=== PATIENT | male | born 1960 | race Hispanic/Latino ===

== ENCOUNTER 2020-02-08 11:50 | Emergency (ER) | payer OTHER ==
[2020-02-08] MEDS ORDERED: CEFTRIAXONE SODIUM 2 GM VIAL ONE (12:26)
[2020-02-08] MEDS ORDERED: ACETAMINOPHEN EXTRA STRENGTH 500 MG TABLET ONE (12:26)
[2020-02-08 12:49] LABS: BASOPHILS % (AUTO) 0.4 % (0.0-5.0); EOSINOPHILS % (AUTO) 1.2 % (0.0-8.0); HEMATOCRIT 36.5 % (42-54); LYMPHOCYTES % (AUTO) 25.5 % (21.0-51.0); MEAN CORPUSCULAR HEMOGLOBIN 33.9 pg (27.0-33.0); MEAN CORPUSCULAR HGB CONC 35.6 g/dL (32.0-36.0); MEAN CORPUSCULAR VOLUME 95.3 fL (79-99); MONOCYTES % (AUTO) 8.5 % (3.0-13.0); NEUTROPHILS % (AUTO) 64.2 % (40.0-77.0); PLATELET COUNT (AUTO) 99 K/uL (130-400); RED BLOOD CELL COUNT(AUTO) 3.83 MIL/uL (4.50-6.20); WHITE BLOOD COUNT (AUTO) 5.1 K/uL (4.8-10.8)
[2020-02-08 13:02] LABS: CREATININE 0.9 mg/dL (0.5-1.5)
[2020-02-08 13:07] LABS: ALBUMIN 2.9 g/dL (3.5-5.0); BILIRUBIN,TOTAL 0.8 mg/dL (0.2-1.0); TOTAL PROTEIN, SERUM 7.4 g/dL (6.0-8.3)
== END 2020-02-08 14:26 | disposition home or self-care (01) ==
LOC: EDH 11:50
DX: L03.116 Cellulitis of left lower limb (principal); E11.9 Type 2 diabetes mellitus without complications; I10 Essential (primary) hypertension; Z72.0 Tobacco use
CPT/HCPCS: 36415; 80053; 83605; 85025; 96361; 96374; 99283; J0696

== ENCOUNTER 2020-02-10 18:32 | Inpatient (IN) | payer OTHER ==
[~2020-02-10] VITALS: Ht 185.4 cm; Wt 81.1 kg
[2020-02-10 19:45] LABS: BASOPHILS % (AUTO) 0.6 % (0.0-5.0); EOSINOPHILS % (AUTO) 2.5 % (0.0-8.0); HEMATOCRIT 37.8 % (42-54); LYMPHOCYTES % (AUTO) 29.9 % (21.0-51.0); MEAN CORPUSCULAR HGB CONC 34.7 g/dL (32.0-36.0); MEAN CORPUSCULAR VOLUME 95.2 fL (79-99); MONOCYTES % (AUTO) 9.3 % (3.0-13.0); NEUTROPHILS % (AUTO) 57.5 % (40.0-77.0); PLATELET COUNT (AUTO) 126 K/uL (130-400); RED BLOOD CELL COUNT(AUTO) 3.97 MIL/uL (4.50-6.20); WHITE BLOOD COUNT (AUTO) 5.2 K/uL (4.8-10.8)
[2020-02-10] MEDS ORDERED: VANCOMYCIN 1GM+NS 250ML 500 ML IV ONE (19:59)
[2020-02-10] MEDS ORDERED: ZOSYN 3.375GM+NS 50ML 50 ML IV ONE (19:59)
[2020-02-10 20:02] LABS: INR 0.91 (0.85-1.15); PARTIAL THROMBOPLASTIN TIME 25.9 SEC (26.3-35.5); PROTHROMBIN TIME 9.9 SEC (9.6-11.6)
[2020-02-10 20:10] LABS: CARBON DIOXIDE 26 mmol/L (21-32); CHLORIDE 100 mmol/L (101-111); GLOMERULAR FILTR. RATE CALC 81 mL/min (>60); GLUCOSE,RANDOM 304 mg/dL (70-105); POTASSIUM 4.4 mmol/L (3.5-5.1); SODIUM SERUM 135 mmol/L (136-145); UREA NITROGEN, BLOOD 20 mg/dL (7-18)
[2020-02-10 20:24] LABS: APPEARANCE,URINE Clear (CLEAR); BILIRUBIN,URINE Negative (NEGATIVE); COLOR,URINE Yellow (YELLOW); GLUCOSE, URINE (UA) >=1000 mg/dL (NEGATIVE); KETONES,URINE Trace mg/dL (NEGATIVE); LEUKOCYTE ESTERASE ,URINE Negative (NEGATIVE); NITRATE,URINE Negative (NEGATIVE); OCCULT BLOOD,URINE Negative (NEGATIVE); PH,URINE 5.5 (5.0-8.0); PROTEIN,URINE Negative (NEGATIVE); UROBILINOGEN,URINE 0.2 mg/dL (0.2-1.0)
[2020-02-10 20:30] LABS: BACTERIA,URINE Rare /HPF (None Seen); MUCUS,URINE Rare LPF (None Seen); RBC,URINE 0-1 /HPF (0-1); SQUAMOUS EPITHELIAL CELL,UR Rare /HPF (0-2); WBC,URINE 0-1 /HPF (0-1)
[2020-02-10 20:38] LABS: ALANINE AMINOTRANSFERASE 40 U/L (12-78); ASPARTATE AMINOTRANSFERASE 36 U/L (10-37); BILIRUBIN,TOTAL 0.5 mg/dL (0.2-1.0); CREATINE KINASE, TOTAL 79 U/L (21-232); MYOGLOBIN 36 ng/mL (10-92); TOTAL PROTEIN, SERUM 7.6 g/dL (6.0-8.3); TROPONIN I < 0.04 ng/mL (0.00-0.06)
[2020-02-10] MEDS ORDERED: VANCOMYCIN PROTOCOL PER PHARMACY IV SCH (21:00)
[2020-02-10] MEDS ORDERED: COMPOUND IV REFRIGERATED 1 EACH IVSOLN MISC PRN (21:00)
[2020-02-10] MEDS ORDERED: ONDANSETRON HCL 4 MG/2 ML VIAL IVP PRN (21:00)
[2020-02-10] MEDS ORDERED: ACETAMINOPHEN 325 MG TAB PO PRN ×2 (21:00→21:15)
[2020-02-10] MEDS: INSULIN R PO SS1 SQ SCH (21:00)
[2020-02-10] MEDS ORDERED: HYDROMORPHONE HCL 0.5 MG/0.5 ML ML IVP PRN (21:00)
[2020-02-10] MEDS ORDERED: ENOXAPARIN SODIUM 40 MG/0.4 ML SYRINGE SQ ONE (22:38)
[2020-02-10] MEDS ORDERED: 1/2 NORMAL SALINE 1,000 ML IV ONE (22:39)
[2020-02-10] MEDS ORDERED: INSULIN HUMULIN R 100 UNIT/ML 3ML ONE (22:40)
[2020-02-11] VITALS (14 sets, daily range): BP systolic 94–134; BP diastolic 50–82
[2020-02-11] MEDS ORDERED: ZOSYN 3.375GM+NS 50ML 50 ML IV ONE ×2 (04:19→13:37)
[2020-02-11] MEDS: 1/2 NORMAL SALINE 1,000 ML IV SCH ×4 (05:00→22:59)
[2020-02-11] MEDS: ZOSYN 3.375GM+NS 50ML 50 ML IV SCH ×3 (05:00→21:42)
[2020-02-11 06:33] LABS: BASOPHILS % (AUTO) 0.5 % (0.0-5.0); EOSINOPHILS % (AUTO) 1.6 % (0.0-8.0); HEMATOCRIT 36.7 % (42-54); LYMPHOCYTES % (AUTO) 30.7 % (21.0-51.0); MEAN CORPUSCULAR HEMOGLOBIN 33.8 pg (27.0-33.0); MEAN CORPUSCULAR HGB CONC 35.4 g/dL (32.0-36.0); MEAN CORPUSCULAR VOLUME 95.3 fL (79-99); MONOCYTES % (AUTO) 8.3 % (3.0-13.0); NEUTROPHILS % (AUTO) 58.7 % (40.0-77.0); PLATELET COUNT (AUTO) 114 K/uL (130-400); RED BLOOD CELL COUNT(AUTO) 3.85 MIL/uL (4.50-6.20); RED CELL DISTRIBUTION WIDTH 12.1 % (11.0-15.5); WHITE BLOOD COUNT (AUTO) 5.5 K/uL (4.8-10.8)
[2020-02-11 06:52] LABS: ALBUMIN 2.9 g/dL (3.5-5.0); CREATININE 0.7 mg/dL (0.5-1.5); POTASSIUM 3.9 mmol/L (3.5-5.1); TOTAL PROTEIN, SERUM 7.5 g/dL (6.0-8.3)
[2020-02-11] MEDS: INSULIN R PO SS1 SQ SCH ×4 (07:30→21:00)
[2020-02-11] MEDS ORDERED: ENOXAPARIN SODIUM 40 MG/0.4 ML SYRINGE SQ ONE (08:04)
[2020-02-11] MEDS ORDERED: VANCOMYCIN 1GM+NS 250ML 250 ML IV ONE (08:05)
[2020-02-11] MEDS: VANCOMYCIN 1.5 GM in SODIUM CHLORIDE 0.9% 250 ML IV SCH ×2 (09:00→22:59)
[2020-02-11] MEDS: ENOXAPARIN SODIUM 40 MG/0.4 ML SYRINGE SQ SCH (09:00)
[2020-02-11] MEDS ORDERED: MIDAZOLAM HCL 1 MG/ML 2ML VIAL ONE ×2 (18:30→19:14)
[2020-02-11] MEDS ORDERED: FENTANYL CITRATE PF 50 MCG/1 ML 2ML VIAL ONE ×6 (18:31→20:03)
[2020-02-11] MEDS ORDERED: BUPIVACAINE/PF 0.5% 10ML VIAL ONE (18:34)
[2020-02-11] MEDS ORDERED: LIDOCAINE HCL 2% 20ML ONE (18:34)
--- NOTE | 2020-02-11 23:00 | NUR ---
patient alert and oriented at the bedside. spoke with daughter bridger and xin to update home medications. patient also takes humalog 2 units if blood sugar greater than 250, soliqa, and trimethromim/sulfa 150 mg bid.
[2020-02-11] MEDS ORDERED: LISI10TA7 PO (23:29)
[2020-02-11] MEDS ORDERED: PRAV20TA4 PO (23:29)
[2020-02-11] MEDS ORDERED: CEFA500C3 PO (23:29)
[2020-02-11] MEDS ORDERED: METF-444 PO (23:29)
[2020-02-11] MEDS ORDERED: MUPI22OI2 TP (23:29)
[2020-02-12] VITALS (10 sets, daily range): BP systolic 100–130; BP diastolic 64–84
[2020-02-12] MEDS: MORPHINE SULFATE 2 MG/ML 1ML SYG IVP PRN ×2 (03:10→10:21)
[2020-02-12] MEDS: ZOSYN 3.375GM+NS 50ML 50 ML IV SCH ×3 (03:10→21:15)
[2020-02-12 04:43] LABS: HEMATOCRIT 34.9 % (42-54); MEAN CORPUSCULAR HGB CONC 34.4 g/dL (32.0-36.0); MEAN CORPUSCULAR VOLUME 95.9 fL (79-99); RED BLOOD CELL COUNT(AUTO) 3.64 MIL/uL (4.50-6.20); RED CELL DISTRIBUTION WIDTH 11.9 % (11.0-15.5); WHITE BLOOD COUNT (AUTO) 4.5 K/uL (4.8-10.8)
[2020-02-12] MEDS: HYDROMORPHONE HCL 0.5 MG/0.5 ML ML IVP PRN ×3 (04:57→22:22)
[2020-02-12] MEDS: 1/2 NORMAL SALINE 1,000 ML IV SCH ×3 (05:00→16:43)
[2020-02-12 05:12] LABS: ALBUMIN 2.5 g/dL (3.5-5.0); BILIRUBIN,TOTAL 0.8 mg/dL (0.2-1.0); CREATININE 0.7 mg/dL (0.5-1.5); TOTAL PROTEIN, SERUM 6.9 g/dL (6.0-8.3)
[2020-02-12] MEDS: INSULIN R PO SS1 SQ SCH ×4 (06:12→21:00)
[2020-02-12] MEDS: ENOXAPARIN SODIUM 40 MG/0.4 ML SYRINGE SQ SCH (10:18)
[2020-02-12] MEDS: VANCOMYCIN 1.5 GM in SODIUM CHLORIDE 0.9% 250 ML IV SCH ×2 (10:19→21:15)
--- NOTE | 2020-02-12 17:23 | NUR ---
DCP CM spoke to pt discussed dc plans. Pt is independent prior to admission, lives at home with spouse, daughter lives close by. Denies any equipments/services. Feels safe to go back home, still drives, spouse and daughter able to assist with transportation and needs as necessary. DC plan to home once stable. CM to cont to follow up. Addendum: 02/12/20 at 1724 by ILYA CASILLAS LVN CM Amended: Links added.
--- NOTE | 2020-02-12 18:20 | NUR ---
DR CLIFFORD changed dressing left foot states looks better today will wait to see what the culture grows
[2020-02-12] MEDS: TETANUS/DIPHTHERIA TOXOID [ADULT] 0.5 ML VIAL IM SCH ×2 (21:00→23:48)
--- NOTE | 2020-02-12 21:15 | NUR ---
MEDS SHIFT ASSESSMENT DONE, PLEASE REFER TO CHART. DUE MEDS ADMINISTERED, TOLERATED WELL. KEPT RESTED AND COMFORTABLE. CALL LIGHT WITHIN REACH. WILL MONITOR PT. Addendum: 02/13/20 at 0449 by ARABELLA BARRERA RN RN Amended: Links added.
--- NOTE | 2020-02-12 22:22 | NUR ---
PAIN PT CALLS FOR PAIN MEDICATION FOR LEFT FOOT POST OP PAINS. MEDICATED WITH MORPHINE IV. KEPT RESTED AND COMFORTABLE IN BED. ELEVATED LLE IN BED. WILL RE-ASSESS PT.
--- NOTE | 2020-02-13 02:00 | NUR ---
ROUNDS PT RESTING WELL, FAIRLY ASLEEP. NO DISTRESS NOTED. KEPT UNDISTURBED FOR NOW. WILL MONITOR PT.
[2020-02-13] MEDS: 1/2 NORMAL SALINE 1,000 ML IV SCH ×3 (02:27→21:00)
[2020-02-13 03:40] LABS: HEMATOCRIT 35.7 % (42-54); MEAN CORPUSCULAR HEMOGLOBIN 33.2 pg (27.0-33.0); MEAN CORPUSCULAR HGB CONC 34.7 g/dL (32.0-36.0); MEAN CORPUSCULAR VOLUME 95.5 fL (79-99); PLATELET COUNT (AUTO) 116 K/uL (130-400); RED BLOOD CELL COUNT(AUTO) 3.74 MIL/uL (4.50-6.20); RED CELL DISTRIBUTION WIDTH 11.9 % (11.0-15.5); WHITE BLOOD COUNT (AUTO) 4.7 K/uL (4.8-10.8)
[2020-02-13 03:45] VITALS: BP 131/72
[2020-02-13 03:52] LABS: CREATININE 0.7 mg/dL (0.5-1.5); POTASSIUM 3.6 mmol/L (3.5-5.1)
[2020-02-13] MEDS: ZOSYN 3.375GM+NS 50ML 50 ML IV SCH ×3 (04:18→20:48)
[2020-02-13 04:47] LABS: BAND NEUTROPHILS % (MANUAL) 1 % (0-2); EOSINOPHILS % (MANUAL) 1 % (1-6); LYMPHOCYTES % (MANUAL) 34 % (22-44); MONOCYTES % (MANUAL) 9 % (2-9); REACTIVE LYMPHOCYTES 3 % (0-0); SEGMENTED NEUTROPHILS % 52 % (40-70)
[2020-02-13 04:48] LABS: MAN.DIFF COMMENT-IMPRESSION MANUAL DIFFERENTIAL; PLATELET MORPHOLOGY COMMENT SLIGHTLY DECREASED
[2020-02-13] MEDS: HYDROMORPHONE HCL 0.5 MG/0.5 ML ML IVP PRN ×2 (05:35→17:43)
--- NOTE | 2020-02-13 05:35 | NUR ---
PAIN PT CALLS FOR PAIN MEDICATION. CLAIMS OF LEFT FOOT PAINS. MEDICATED WITH DILAUDID IV. KEPT COMFORTABLE AND RESTED. WILL RE-ASSESS PT.
[2020-02-13] MEDS: INSULIN R PO SS1 SQ SCH ×4 (06:04→20:48)
--- NOTE | 2020-02-13 06:53 | NUR ---
MD DR CLIFFORD IN TO SEE PT. DRESSING CHANGE DONE BY . NO ORDERS GIVEN.
--- NOTE | 2020-02-13 08:01 | NUR ---
PHYSICIAN ROUND DR HAQUE NEW ORDERS FOR AM LAB BMP AND CBC, ORDERS PLACED
[2020-02-13 08:57] VITALS: BP 133/79
[2020-02-13] MEDS: ENOXAPARIN SODIUM 40 MG/0.4 ML SYRINGE SQ SCH (09:00)
[2020-02-13 12:08] VITALS: BP 131/77
[2020-02-13] MEDS: VANCOMYCIN 1.25 GM in SODIUM CHLORIDE 0.9% 250 ML IV SCH ×2 (14:00→22:20)
[2020-02-13 16:46] VITALS: BP 131/77
[2020-02-13 20:00] VITALS: BP 114/59
[2020-02-13 23:40] VITALS: BP 130/73
[2020-02-14] MEDS: MORPHINE SULFATE 2 MG/ML 1ML SYG IVP PRN (00:20)
[2020-02-14 04:00] VITALS: BP 113/71
[2020-02-14] MEDS: ZOSYN 3.375GM+NS 50ML 50 ML IV SCH (04:03)
[2020-02-14] MEDS: 1/2 NORMAL SALINE 1,000 ML IV SCH ×3 (04:03→22:13)
[2020-02-14 04:27] LABS: BASOPHILS % (AUTO) 0.4 % (0.0-5.0); EOSINOPHILS % (AUTO) 1.8 % (0.0-8.0); HEMATOCRIT 34.6 % (42-54); LYMPHOCYTES % (AUTO) 29.8 % (21.0-51.0); MEAN CORPUSCULAR HEMOGLOBIN 32.9 pg (27.0-33.0); MEAN CORPUSCULAR HGB CONC 34.7 g/dL (32.0-36.0); MEAN CORPUSCULAR VOLUME 94.8 fL (79-99); MONOCYTES % (AUTO) 10.2 % (3.0-13.0); NEUTROPHILS % (AUTO) 57.6 % (40.0-77.0); PLATELET COUNT (AUTO) 122 K/uL (130-400); RED BLOOD CELL COUNT(AUTO) 3.65 MIL/uL (4.50-6.20); RED CELL DISTRIBUTION WIDTH 11.8 % (11.0-15.5); WHITE BLOOD COUNT (AUTO) 5.4 K/uL (4.8-10.8)
[2020-02-14 04:54] LABS: CREATININE 0.7 mg/dL (0.5-1.5); POTASSIUM 3.4 mmol/L (3.5-5.1)
[2020-02-14] MEDS: VANCOMYCIN 1.25 GM in SODIUM CHLORIDE 0.9% 250 ML IV SCH (05:08)
[2020-02-14] MEDS: INSULIN R PO SS1 SQ SCH ×3 (05:46→22:06)
--- NOTE | 2020-02-14 08:00 | NUR ---
SHABNAM VANCE ROUNDED. SEEN AND TALKED TO PATIENT WITH ORDERS.
[2020-02-14 08:13] VITALS: BP 118/73
[2020-02-14] MEDS ORDERED: LIDOCAINE HCL-MPF 1% 2ML VIAL IV PRN (08:15)
[2020-02-14] MEDS ORDERED: POTASSIUM CHLORIDE 10% ELIXIR 20 MEQ/15 ML UDCUP PO PRN (08:15)
[2020-02-14] MEDS ORDERED: POTASSIUM CHLORIDE 20MEQ/100ML 100 ML IV PRN (08:15)
[2020-02-14] MEDS: ENOXAPARIN SODIUM 40 MG/0.4 ML SYRINGE SQ SCH (10:29)
[2020-02-14 11:30] VITALS: BP 128/78
[2020-02-14] MEDS: AMOXICILLIN 500 MG CAPSULE PO SCH ×2 (13:57→20:01)
[2020-02-14] MEDS: POTASSIUM CHLORIDE 20 MEQ ERTAB PO PRN ×2 (13:57→22:06)
[2020-02-14 16:10] VITALS: BP 128/84
[2020-02-14] MEDS: HYDROMORPHONE HCL 0.5 MG/0.5 ML ML IVP PRN (18:31)
[2020-02-14 19:00] VITALS: BP 125/78
[2020-02-15] VITALS (25 sets, daily range): BP systolic 98–145; BP diastolic 55–93
[2020-02-15] MEDS ORDERED: AMOXICILLIN 500 MG CAPSULE PO ONE (03:57)
[2020-02-15] MEDS: AMOXICILLIN 500 MG CAPSULE PO SCH ×3 (04:08→19:36)
[2020-02-15] MEDS: 1/2 NORMAL SALINE 1,000 ML IV SCH ×2 (04:09→15:00)
[2020-02-15 05:31] LABS: BASOPHILS % (AUTO) 0.5 % (0.0-5.0); EOSINOPHILS % (AUTO) 1.7 % (0.0-8.0); HEMATOCRIT 37.6 % (42-54); MEAN CORPUSCULAR HEMOGLOBIN 33.3 pg (27.0-33.0); MEAN CORPUSCULAR HGB CONC 34.8 g/dL (32.0-36.0); MEAN CORPUSCULAR VOLUME 95.7 fL (79-99); MONOCYTES % (AUTO) 8.3 % (3.0-13.0); NEUTROPHILS % (AUTO) 53.2 % (40.0-77.0); PLATELET COUNT (AUTO) 173 K/uL (130-400); RED BLOOD CELL COUNT(AUTO) 3.93 MIL/uL (4.50-6.20); RED CELL DISTRIBUTION WIDTH 11.7 % (11.0-15.5); WHITE BLOOD COUNT (AUTO) 7.5 K/uL (4.8-10.8)
[2020-02-15 05:53] LABS: ALBUMIN 2.9 g/dL (3.5-5.0); CREATININE 0.9 mg/dL (0.5-1.5); POTASSIUM 3.7 mmol/L (3.5-5.1); TOTAL PROTEIN, SERUM 7.9 g/dL (6.0-8.3)
--- NOTE | 2020-02-15 06:15 | NUR ---
CHADWICK VANCE ROUNDED. Seen and talked to pt. without any new orders given.
[2020-02-15] MEDS: INSULIN R PO SS1 SQ SCH ×4 (06:23→20:52)
[2020-02-15] MEDS ORDERED: BUPIVACAINE/PF 0.5% 10ML VIAL ONE (06:48)
[2020-02-15] MEDS ORDERED: MIDAZOLAM HCL 1 MG/ML 2ML VIAL ONE (06:52)
[2020-02-15] MEDS ORDERED: LIDOCAINE PF 2% 5ML ABBOJECT ONE (06:52)
[2020-02-15] MEDS ORDERED: PROPOFOL 10 MG/ML 20ML VIAL IV ONE ×2 (06:52→08:23)
[2020-02-15] MEDS ORDERED: FENTANYL CITRATE PF 50 MCG/1 ML 2ML VIAL ONE (06:53)
--- NOTE | 2020-02-15 07:10 | NUR ---
TAKEN TO OR VIA BED. VS WNL. PT FULLY AWAKE AND RESPONSIVE WITHOUT ANY FORM OF SIGNS OF DISTRESS NOTED.
[2020-02-15] MEDS ORDERED: SODIUM CHLORIDE 0.9% 10 ML VIAL ONE (07:50)
[2020-02-15] MEDS ORDERED: PHENYLEPHRINE HCL 10 MG/ML 1ML VIAL IV ONE (07:50)
[2020-02-15] MEDS ORDERED: MEPERIDINE-PF 25 MG/ML SYG ONE (08:44)
[2020-02-15] MEDS: ENOXAPARIN SODIUM 40 MG/0.4 ML SYRINGE SQ SCH (09:00)
[2020-02-16] VITALS: BP 133/65
[2020-02-16] MEDS: 1/2 NORMAL SALINE 1,000 ML IV SCH ×3 (00:26→21:17)
[2020-02-16 04:00] VITALS: BP 111/64
[2020-02-16] MEDS: AMOXICILLIN 500 MG CAPSULE PO SCH ×3 (04:44→21:13)
[2020-02-16] MEDS: HYDROMORPHONE HCL 0.5 MG/0.5 ML ML IVP PRN (04:44)
[2020-02-16] MEDS: INSULIN R PO SS1 SQ SCH ×4 (05:41→21:00)
[2020-02-16 08:14] VITALS: BP 103/54
[2020-02-16] MEDS: ENOXAPARIN SODIUM 40 MG/0.4 ML SYRINGE SQ SCH (09:48)
[2020-02-16 11:43] VITALS: BP 121/63
--- NOTE | 2020-02-16 14:08 | NUR ---
Home Health Orders received for Home Health services @ [facility] Met with pt this afternoon to discuss Md orders. Pt in agreement to refer to any in network provider. CM also spoke w pts dtr, Kimmie. Informed her regarding Md recommendations. She mentions that her family member previously had services from [facility] and would like that to be #1 choice if in network. Referral faxed to #1 [facility], #2 [facility], #3 [facility]. Call placed to [facility] they are not able to confirm in benefits dt business office being closed. CM to follow up in am.
[2020-02-16 17:00] VITALS: BP 101/61
[2020-02-16 19:00] VITALS: BP 122/68
[2020-02-17] VITALS: BP 131/82
[2020-02-17 04:00] VITALS: BP 137/79
[2020-02-17] MEDS: AMOXICILLIN 500 MG CAPSULE PO SCH ×3 (05:19→18:12)
[2020-02-17] MEDS: 1/2 NORMAL SALINE 1,000 ML IV SCH ×2 (05:19→13:00)
[2020-02-17] MEDS: INSULIN R PO SS1 SQ SCH ×3 (06:04→16:30)
[2020-02-17 07:52] VITALS: BP 142/87
[2020-02-17] MEDS: ENOXAPARIN SODIUM 40 MG/0.4 ML SYRINGE SQ SCH (10:15)
[2020-02-17 10:33] VITALS: BP 124/79
--- NOTE | 2020-02-17 15:20 | NUR ---
BARRIERS TO DISCHARGE [facility] reviwed the referral and made cals to all the hh that [facility] sent info to. not in network with [facility] . [facility] states not in network.. but also pt does not have ANY HOME HEALTH BENEFITS Messages sent to Dr. Ruth and Dr. David waiting for return call back. Addendum: 02/17/20 at 1534 by MIKAYLA CUI RN CM Amended: Links added.
[2020-02-17] MEDS ORDERED: HYDROGEL DRESSING 30 GM TUBE TP SCH (15:30)
[2020-02-17 16:30] VITALS: BP 135/82
--- NOTE | 2020-02-17 17:12 | NUR ---
[place] [facility] [place]- NEXT WEEK ORDERS PER DR. STILES SENT, CONFIRMED WITH DR. CLIFFORD AND LINSEY DAVID TEXT, SPOKE TO ADMISSION DEBRA AT [facility], STATES WOULD START WORKING ON APPROVAL WITH INSURANCE, JESSICA OBTAINED FROM DAUGHTER VIA PHONE, RN AWARE OF PLAN, DAUGHTER TO COME GET TEACHING UNTIL [facility] APPOINTMENT NEXT . 1100 Addendum: 02/18/20 at 0830 by MIKAYLA CUI RN Amended: Links added.
--- NOTE | 2020-02-17 18:00 | NUR ---
WOUND DRESSING TEACHING PATIENTS DAUGHTER, HE ANDRES, PRESENT AT BEDSIDE TO RECIEVE INSTRUCTIONS ON HOW TO PERFORM DAILY DRESSING CHANGES TO LEFT FOOT ORDERED BY DR. CLIFFORD. PROVIDED PATIENT AND PATIENTS DAUGHTER WITH SUFFICIENT WOUND DRESSING SUPPLIES TO PERFORM DAILY DRESSING CHANGES FOR 1 WEEK (NORMAL SALINE, 7 CONTAINERS 4X4 GAUZE, 7 PACKAGES OF VASELINE GAUZE, 7 KERLIX ROLLS, 2 TRAVIS WRAPS, AND PROVIDED WITH HYDROGEL WOUND DEL MEDICATION TUBE). INSTRUCTED ON HOW TO PERFORM HAND HYGIENE PRIOR TO WOUND CHANGES, CLEANSE LEFT FOOT WOUND WITH NS, APPLICATION OF HYDROGEL WOUND GEL, APPLICATION OF VASELINE GAUZE, COVER WITH 4X4 GAUZE, SECURE WITH KERLIX WRAP AND TRAVIS WRAP. HE ANDRES VERBALIZED UNDERSTANDING OF DRESSING CHANGE TEACHING AND THAT SHE FELT COMFORTABLE PERFORMING WOUND DRESSING CHANGES AT HOME. Jai ANDRES REPORTS THAT SHE WAS ALSO ABLE TO PURCHASE A STANDARD WALKER TODAY AND THE WALKER IS CURRENTLY AT PATIENTS HOME.
== END 2020-02-17 18:35 | disposition home or self-care (01) | DRG 239 ==
LOC: EDH 18:32 → OBSVTOIN 20:44 → EDHIP 20:44 → 3BH 02-11 21:35
PROVIDERS: ADMIT Internal Medicine; ATTEND Internal Medicine
PROC: 0KBW0ZZ Excision of Left Foot Muscle, Open Approach (ICD-10-PCS; 2020-02-11)
PROC: 0Y6N0ZF Detachment at Left Foot, Partial 5th Ray, Open Approach (ICD-10-PCS; principal; 2020-02-11 19:06)
DX: E11.52 Type 2 diabetes mellitus with diabetic peripheral angiopathy with gangrene (principal); A48.0 Gas gangrene; M72.6 Necrotizing fasciitis; L03.116 Cellulitis of left lower limb; L02.612 Cutaneous abscess of left foot; M86.8X7 Other osteomyelitis, ankle and foot; S91.332A Puncture wound without foreign body, left foot, initial encounter; E11.621 Type 2 diabetes mellitus with foot ulcer; L97.529 Non-pressure chronic ulcer of other part of left foot with unspecified severity; E11.69 Type 2 diabetes mellitus with other specified complication; B95.2 Enterococcus as the cause of diseases classified elsewhere; Z20.828 Contact with and (suspected) exposure to other viral communicable diseases; D64.9 Anemia, unspecified; R53.81 Other malaise; E66.9 Obesity, unspecified; E78.5 Hyperlipidemia, unspecified; I10 Essential (primary) hypertension; Z68.23 Body mass index [BMI] 23.0-23.9, adult; Y93.89 Activity, other specified; Y92.238 Other place in hospital as the place of occurrence of the external cause; Y99.8 Other external cause status; Z83.3 Family history of diabetes mellitus
CPT/HCPCS: 36415; 71045; 73630; 73718; 80048; 80053; 80202; 81001; 82550; 82948; 83605; 83874; 84145; 84484; 85025; 85027; 85610; 85730; 86900; 86901; 87040; 87070; 87076; 87077; 87088; 87186; 87205; 90714; 93005; 93925; 97039; G0378; J1170; J1650; J1815; J2001; J2175; J2250; J2370; J2543; J2704; J3010; J3370; J3490; J7030; J7050; U0003

== ENCOUNTER → 2022-11-08 | Outpatient (CLI) | payer OTHER ==
[~2022-11-08] MED LIST: ASPI-1521 PO; BACL10TA PO; CLOP75TA32 PO; GABA-529 PO; INSU300I SQ; LIDOCAINE HCL 4% LTA SOL 4 ML VIAL TP ONE; LISI5TAB21 PO; METF-444 PO; NAPR-1023 PO; ROSU20TA31 PO
== END | disposition home or self-care (01) ==
LOC: WHH 08:33
PROVIDERS: ATTEND Nurse Practitioner Family
DX: T81.89XA Other complications of procedures, not elsewhere classified, initial encounter (principal); E11.622 Type 2 diabetes mellitus with other skin ulcer; L97.112 Non-pressure chronic ulcer of right thigh with fat layer exposed; L97.212 Non-pressure chronic ulcer of right calf with fat layer exposed; I10 Essential (primary) hypertension; E78.5 Hyperlipidemia, unspecified; B19.9 Unspecified viral hepatitis without hepatic coma; Z89.412 Acquired absence of left great toe; Z79.84 Long term (current) use of oral hypoglycemic drugs; Z79.82 Long term (current) use of aspirin; Z79.4 Long term (current) use of insulin; Z87.891 Personal history of nicotine dependence; Y83.8 Other surgical procedures as the cause of abnormal reaction of the patient, or of later complication, without mention of misadventure at the time of the procedure; Y92.238 Other place in hospital as the place of occurrence of the external cause
CPT/HCPCS: 11042; A6022; A4450

== ENCOUNTER → 2022-11-14 | Outpatient (CLI) | payer OTHER | END | disposition home or self-care (01) | LOC: WHH 08:03 | PROVIDERS: ATTEND Nurse Practitioner Family | DX: T81.89XD Other complications of procedures, not elsewhere classified, subsequent encounter (principal); E11.622 Type 2 diabetes mellitus with other skin ulcer; L97.112 Non-pressure chronic ulcer of right thigh with fat layer exposed; L97.212 Non-pressure chronic ulcer of right calf with fat layer exposed; I10 Essential (primary) hypertension; E78.5 Hyperlipidemia, unspecified; B19.9 Unspecified viral hepatitis without hepatic coma; Z89.412 Acquired absence of left great toe; Z79.84 Long term (current) use of oral hypoglycemic drugs; Z79.82 Long term (current) use of aspirin; Z79.4 Long term (current) use of insulin; Z87.891 Personal history of nicotine dependence; Y83.8 Other surgical procedures as the cause of abnormal reaction of the patient, or of later complication, without mention of misadventure at the time of the procedure | CPT/HCPCS: G0463; A6022 ==

== ENCOUNTER → 2022-11-21 | Outpatient (CLI) | payer OTHER | END | disposition home or self-care (01) | LOC: WHH 08:02 | PROVIDERS: ATTEND Nurse Practitioner Family | DX: T81.89XD Other complications of procedures, not elsewhere classified, subsequent encounter (principal); E11.622 Type 2 diabetes mellitus with other skin ulcer; L97.112 Non-pressure chronic ulcer of right thigh with fat layer exposed; L97.212 Non-pressure chronic ulcer of right calf with fat layer exposed; I10 Essential (primary) hypertension; E78.5 Hyperlipidemia, unspecified; B19.9 Unspecified viral hepatitis without hepatic coma; Z89.412 Acquired absence of left great toe; Z79.84 Long term (current) use of oral hypoglycemic drugs; Z79.82 Long term (current) use of aspirin; Z79.4 Long term (current) use of insulin; Z87.891 Personal history of nicotine dependence; Y83.8 Other surgical procedures as the cause of abnormal reaction of the patient, or of later complication, without mention of misadventure at the time of the procedure | CPT/HCPCS: G0463; A6209 ==

== ENCOUNTER → 2022-12-05 | Outpatient (CLI) | payer OTHER ==
[~2022-12-05] MED LIST changes: -ROSU20TA31 PO; +ROSU20TA73 PO
== END | disposition home or self-care (01) ==
LOC: WHH 08:05
PROVIDERS: ATTEND Nurse Practitioner Family
DX: T81.89XD Other complications of procedures, not elsewhere classified, subsequent encounter (principal); E11.622 Type 2 diabetes mellitus with other skin ulcer; L97.218 Non-pressure chronic ulcer of right calf with other specified severity; L97.118 Non-pressure chronic ulcer of right thigh with other specified severity; E78.5 Hyperlipidemia, unspecified; B19.9 Unspecified viral hepatitis without hepatic coma; D69.6 Thrombocytopenia, unspecified; Z89.412 Acquired absence of left great toe; Z99.3 Dependence on wheelchair; Z87.891 Personal history of nicotine dependence; Z79.82 Long term (current) use of aspirin; Z79.4 Long term (current) use of insulin; Z79.84 Long term (current) use of oral hypoglycemic drugs; Y83.8 Other surgical procedures as the cause of abnormal reaction of the patient, or of later complication, without mention of misadventure at the time of the procedure
CPT/HCPCS: G0463

== ENCOUNTER → 2022-12-12 | Outpatient (CLI) | payer OTHER ==
[~2022-12-12] MED LIST changes: -LIDOCAINE HCL 4% LTA SOL 4 ML VIAL TP ONE
== END | disposition home or self-care (01) ==
LOC: WHH 08:26
PROVIDERS: ATTEND Nurse Practitioner Family
DX: T81.89XD Other complications of procedures, not elsewhere classified, subsequent encounter (principal); E11.622 Type 2 diabetes mellitus with other skin ulcer; L97.112 Non-pressure chronic ulcer of right thigh with fat layer exposed; L97.211 Non-pressure chronic ulcer of right calf limited to breakdown of skin; I10 Essential (primary) hypertension; E78.5 Hyperlipidemia, unspecified; B19.9 Unspecified viral hepatitis without hepatic coma; Z89.412 Acquired absence of left great toe; Z79.84 Long term (current) use of oral hypoglycemic drugs; Z79.82 Long term (current) use of aspirin; Z79.4 Long term (current) use of insulin; Z87.891 Personal history of nicotine dependence; Y83.8 Other surgical procedures as the cause of abnormal reaction of the patient, or of later complication, without mention of misadventure at the time of the procedure
CPT/HCPCS: G0463

== ENCOUNTER 2023-09-20 12:48 | Inpatient (IN) | payer OTHER ==
[~2023-09-20] VITALS: Ht 185.4 cm; Wt 109.6 kg
[2023-09-20 14:08] LABS: HEMATOCRIT 32.3 % (42-54); MEAN CORPUSCULAR HEMOGLOBIN 33.5 pg (27.0-33.0); MEAN CORPUSCULAR HGB CONC 35.9 g/dL (32.0-36.0); MEAN CORPUSCULAR VOLUME 93.4 fL (79-99); PLATELET COUNT (AUTO) 82 K/uL (130-400); RED BLOOD CELL COUNT(AUTO) 3.46 MIL/uL (4.50-6.20); RED CELL DISTRIBUTION WIDTH 13.2 % (11.0-15.5); WHITE BLOOD COUNT (AUTO) 3.8 K/uL (4.8-10.8)
[2023-09-20 14:19] LABS: CREATININE 0.9 mg/dL (0.5-1.3); POTASSIUM 4.5 mmol/L (3.5-5.1)
[2023-09-20 14:23] LABS: ALBUMIN 3.1 g/dL (3.5-5.0); BILIRUBIN,TOTAL 1.1 mg/dL (0.2-1.0); TOTAL PROTEIN, SERUM 6.9 g/dL (6.0-8.3)
[2023-09-20] MEDS ORDERED: KCL 20 MEQ ERTAB PO PRN (14:30)
[2023-09-20] MEDS ORDERED: POTASSIUM CHLORIDE 10% ELIXIR 20 MEQ/15 ML UDCUP PO PRN (14:30)
[2023-09-20] MEDS ORDERED: HYDROCODONE/ACETAMINOPHEN 5/325 MG TAB PO PRN (14:30)
[2023-09-20] MEDS ORDERED: POTASSIUM CHLORIDE 20MEQ/100ML 100 ML IV PRN ×2 (14:30)
[2023-09-20 14:53] LABS: BAND NEUTROPHILS % (MANUAL) 1 % (0-2); BASOPHILS % (MANUAL) 3 % (0-2); EOSINOPHILS % (MANUAL) 3 % (1-6); LYMPHOCYTES % (MANUAL) 27 % (22-44); MAN.DIFF COMMENT-IMPRESSION MANUAL DIFFERENTIAL; MONOCYTES % (MANUAL) 5 % (2-9); PLATELET MORPHOLOGY COMMENT DECREASED; REACTIVE LYMPHOCYTES 2 % (0-0); SEGMENTED NEUTROPHILS % 59 % (40-70); TOTAL CELLS COUNTED 100
[2023-09-20] MEDS: CLINDAMYCIN IVPB 600MG/50ML 50 ML IV SCH (16:08)
[2023-09-20] MEDS: 0.9%NACL 1000ML 1,000 ML IV SCH (16:08)
[2023-09-20 16:30] VITALS: BP 139/78; PULSE 79; RESP 18; O2SAT 98
[2023-09-20 20:00] VITALS: BP 130/65; PULSE 70; RESP 16
[2023-09-20 20:07] VITALS: O2SAT 98
[2023-09-20] MEDS: FAMOTIDINE 20MG TAB PO SCH (21:13)
[2023-09-20] MEDS: INSULIN HUMULIN R 100 UNIT/ML 3ML SQ SCH (21:15)
[2023-09-21] VITALS (27 sets, daily range): BP systolic 92–133; BP diastolic 52–87; PULSE 61–83; RESP 15–20; O2SAT 98
[2023-09-21 05:06] LABS: BASOPHILS # (AUTO) 0.02 K/uL (0.00-0.20); BASOPHILS % (AUTO) 0.6 % (0.0-5.0); EOSINOPHILS # (AUTO) 0.08 K/uL (0.00-0.70); EOSINOPHILS % (AUTO) 2.2 % (0.0-8.0); HEMATOCRIT 33.7 % (42-54); IMMATURE GRANULOCYTE ABSOLUTE 0.01 K/uL (0-1); LYMPHOCYTES # (AUTO) 1.5 K/uL (1.0-4.8); LYMPHOCYTES % (AUTO) 42.4 % (21.0-51.0); MEAN CORPUSCULAR HEMOGLOBIN 33.2 pg (27.0-33.0); MEAN CORPUSCULAR HGB CONC 34.1 g/dL (32.0-36.0); MEAN CORPUSCULAR VOLUME 97.4 fL (79-99); MONOCYTES # (AUTO) 0.3 K/uL (0.1-1.0); MONOCYTES % (AUTO) 7.6 % (3.0-13.0); NEUTROPHILS # (AUTO) 1.7 K/uL (1.8-7.7); NEUTROPHILS % (AUTO) 46.9 % (40.0-77.0); PLATELET COUNT (AUTO) 68 K/uL (130-400); RED BLOOD CELL COUNT(AUTO) 3.46 MIL/uL (4.50-6.20); RED CELL DISTRIBUTION WIDTH 13.1 % (11.0-15.5); WHITE BLOOD COUNT (AUTO) 3.6 K/uL (4.8-10.8)
[2023-09-21 05:22] LABS: CREATININE 0.7 mg/dL (0.5-1.3); MAGNESIUM 1.6 mg/dL (1.80-2.40); POTASSIUM 3.9 mmol/L (3.5-5.1)
[2023-09-21] MEDS: ENOXAPARIN SODIUM 40 MG/0.4 ML SYRINGE SQ SCH (07:46)
[2023-09-21] MEDS: MAGNESIUM 2GM PREMIX 50ML 50 ML IV PRN (07:57)
[2023-09-21] MEDS ORDERED: BACLOFEN 10 MG TABLET PO PRN (10:00)
[2023-09-21] MEDS ORDERED: GLYCOPYRROLATE 0.2 MG/ML 5 ML VIAL ONE (11:01)
[2023-09-21] MEDS ORDERED: PROPOFOL 10 MG/ML 20ML VIAL IV ONE ×2 (11:01→11:02)
[2023-09-21] MEDS ORDERED: LIDOCAINE PF 100MG/5ML (2%) SYRINGE 5ML ONE (11:01)
[2023-09-21] MEDS ORDERED: FENTANYL CITRATE PF 50 MCG/1 ML 2ML VIAL ONE (11:02)
[2023-09-21] MEDS ORDERED: SUCCINYLCHOLINE CHLORIDE 20 MG/ML 10 ML VIAL ONE (11:02)
[2023-09-21] MEDS ORDERED: ROCURONIUM BROMIDE 10MG/1ML 5ML VL ONE (11:02)
[2023-09-21] MEDS ORDERED: MIDAZOLAM HCL 1 MG/ML 2ML VIAL ONE (11:51)
[2023-09-21] MEDS ORDERED: EPHEDRINE SULFATE 50 MG/ML AMPULE ONE (12:31)
[2023-09-21] MEDS: BUPIVACAINE/PF 0.5% 30ML VIAL ONE (12:35)
[2023-09-21] MEDS: LIDOCAINE 1%-EPI 1:100,000 20 ML VIAL ONE (12:35)
[2023-09-21] MEDS: CEFAZOLIN SODIUM 1 GM VIAL ONE (12:35)
[2023-09-21] MEDS ORDERED: ONDANSETRON 4MG INJ ONE (12:43)
[2023-09-21] MEDS ORDERED: BACITRACIN 28.4 GM OINT TP ONE (12:54)
[2023-09-21] MEDS ORDERED: NEOSTIGMINE METHYLSULFATE 1MG/ML IV ONE (13:12)
[2023-09-21] MEDS: ONDANSETRON 4MG INJ ONE (14:34)
[2023-09-21] MEDS ORDERED: HYDROMORPHONE 1 MG INJ IVP PRN (15:30)
[2023-09-21] MEDS: HYDROCODONE/ACETAMINOPHEN 5/325 MG TAB PO PRN (16:48)
[2023-09-21] MEDS: OXYCODONE/ACETAMIN 5/325MG TAB PO PRN (19:32)
[2023-09-21] MEDS: ATORVASTATIN 40 MG TABLET PO SCH (20:28)
[2023-09-21] MEDS: GABAPENTIN 100 MG CAPSULE PO SCH (20:28)
[2023-09-22] VITALS: BP 110/66; PULSE 70; RESP 18
[2023-09-22 04:00] VITALS: BP 117/76; PULSE 76; RESP 18
[2023-09-22 05:45] LABS: BASOPHILS # (AUTO) 0.02 K/uL (0.00-0.20); BASOPHILS % (AUTO) 0.4 % (0.0-5.0); EOSINOPHILS # (AUTO) 0.08 K/uL (0.00-0.70); EOSINOPHILS % (AUTO) 1.5 % (0.0-8.0); HEMATOCRIT 32.1 % (42-54); IMMATURE GRANULOCYTE ABSOLUTE 0.01 K/uL (0-1); LYMPHOCYTES # (AUTO) 1.4 K/uL (1.0-4.8); LYMPHOCYTES % (AUTO) 25.6 % (21.0-51.0); MEAN CORPUSCULAR HEMOGLOBIN 33.7 pg (27.0-33.0); MEAN CORPUSCULAR HGB CONC 35.5 g/dL (32.0-36.0); MONOCYTES # (AUTO) 0.3 K/uL (0.1-1.0); MONOCYTES % (AUTO) 4.9 % (3.0-13.0); NEUTROPHILS # (AUTO) 3.6 K/uL (1.8-7.7); NEUTROPHILS % (AUTO) 67.4 % (40.0-77.0); PLATELET COUNT (AUTO) 67 K/uL (130-400); RED BLOOD CELL COUNT(AUTO) 3.38 MIL/uL (4.50-6.20); RED CELL DISTRIBUTION WIDTH 13.1 % (11.0-15.5); WHITE BLOOD COUNT (AUTO) 5.3 K/uL (4.8-10.8)
[2023-09-22 06:01] LABS: ALBUMIN 2.9 g/dL (3.5-5.0); BILIRUBIN,TOTAL 1.3 mg/dL (0.2-1.0); CREATININE 0.7 mg/dL (0.5-1.3); MAGNESIUM 1.8 mg/dL (1.80-2.40); POTASSIUM 4.2 mmol/L (3.5-5.1); TOTAL PROTEIN, SERUM 6.6 g/dL (6.0-8.3)
[2023-09-22 06:11] LABS: HIV 1&2 ANTIBODY Non-Reactive (Negative)
[2023-09-22 06:12] LABS: HIV-1 p24 Antigen Non-Reactive (Negative)
[2023-09-22 07:58] VITALS: BP 120/71; PULSE 71; RESP 18
[2023-09-22 08:00] VITALS: O2SAT 98
[2023-09-22] MEDS: CLOPIDOGREL 75MG TAB PO SCH (08:43)
[2023-09-22] MEDS: ASPIRIN 81 MG EC TAB PO SCH (08:43)
[2023-09-22] MEDS ORDERED: NON-FORMULARY MEDICATION 1 EACH (Rosuvastatin Calcium 1 TAB) PO SCH (09:00)
[2023-09-22 11:16] VITALS: BP 123/73; PULSE 73; RESP 19
[2023-09-22] MEDS ORDERED: CLIN-141 PO (15:12)
[2023-09-22] MEDS ORDERED: LEVO750T68 PO (15:12)
[2023-09-22 15:58] VITALS: BP 125/71; PULSE 70; RESP 19
[2023-09-22] MEDS: HONEY 1 APPL/ML TUBE TP SCH (17:36)
== END 2023-09-22 18:30 | disposition home or self-care (01) | DRG 603 ==
LOC: EDH 12:48 → EDHIP 12:49 → 3AH 14:41
PROVIDERS: ADMIT Internal Medicine; ATTEND Internal Medicine
PROC: 0J950ZZ Drainage of Left Neck Subcutaneous Tissue and Fascia, Open Approach (ICD-10-PCS; principal; 2023-09-21 11:45)
DX: L02.11 Cutaneous abscess of neck (principal); D61.818 Other pancytopenia; E11.621 Type 2 diabetes mellitus with foot ulcer; E11.65 Type 2 diabetes mellitus with hyperglycemia; I10 Essential (primary) hypertension; E78.5 Hyperlipidemia, unspecified; E66.9 Obesity, unspecified; Z68.33 Body mass index [BMI] 33.0-33.9, adult; Z79.84 Long term (current) use of oral hypoglycemic drugs; Z89.422 Acquired absence of other left toe(s); Z79.4 Long term (current) use of insulin
CPT/HCPCS: 36415; 73630; 73718; 80048; 80053; 82948; 83735; 85025; 86701; 87070; 87076; 87077; 87186; 87390; 88304; 93925; G0378; J0330; J0690; J1815; J2001; J2250; J2405; J2704; J2710; J3010; J3475; J3490; A4216; A4222; A4223; A4452; A4600; A4930; J0665

== ENCOUNTER → 2024-02-28 | Outpatient (CLI) | payer OTHER ==
[~2024-02-28] MED LIST changes: +CLIN-141 PO; +LEVO750T68 PO; -NAPR-1023 PO
== END | disposition home or self-care (01) ==
LOC: RAH 07:51
PROVIDERS: ATTEND Internal Medicine
DX: N20.0 Calculus of kidney (principal); N28.1 Cyst of kidney, acquired; R74.8 Abnormal levels of other serum enzymes
CPT/HCPCS: 76700